=== PATIENT | female | born 1960 | race Caucasian/White ===

== ENCOUNTER 2019-01-27 07:41 | Day surgery (SDC) | payer OTHER, SELFPAY ==
[2019-01-27] VITALS (9 sets, daily range): BP systolic 116–144; BP diastolic 70–95; PULSE 66–105; RESP 11–16; TEMP 36.4–37; O2SAT 96–99
[2019-01-27] MEDS: ACETAMINOPHEN 325 MG TABLET 975 MG PO ×3 (08:22→20:38)
[2019-01-27] MEDS: CELECOXIB 200 MG CAPSULE PO (08:23)
[2019-01-27] MEDS: PREGABALIN 75 MG CAPSULE PO (08:23)
[2019-01-27] MEDS: LACTATED RINGERS 1,000 ML 42 ML IV ×2 (08:30→10:56)
--- NOTE | 2019-01-27 09:18 | PM.PREOP ---
Pre-operative Note Interval Note History & Physical reviewed/Exam performed by Physician: Yes Changes to H&P: No
--- NOTE | 2019-01-27 09:19 | PM.OP.1 ---
Operative Date/Time/Diagnoses Date of procedure: 01/27/19 Time of procedure: 11:36 Pre-op diagnosis: Bilateral medial compartment osteoarthritis Post-op diagnosis: same Procedure & Clinicians Procedure: Bilateral medial compartment arthroplasty Same procedure as scheduled: Yes Indications: The patient presents today for bilateral medial compartment knee arthroplasty after failure of conservative treatment. The nature of the procedure including the risks and benefits, alternatives, postoperative course and expected outcome were discussed and all questions answered. Consent was obtained. Operative site confirmed and marked. Surgeon: Wander Villasenor Director Of Procurement: Chavez Angela Anesthesia Type: General, Spinal and Local Operative Notes Findings: Severe medial compartment osteoarthritis bilateral knees. Closure Type: primary Specimen(s): none sent Prosthetic devices, grafts, tissues, transplants, or devices: Velásquez [employer] Nephew ZUK BILATERAL D femoral component, 2 tibial component, 9 mm polyethylene tray. Applied: implant(s) Estimated Blood Loss (mL): 10 Blood products transfused: none Tourniquet time (min): 32 Procedure in detail: The patient was taken to the operative suite and placed under general anesthesia. The patient received prophylactic antibiotics 1 g of IV tranexamic acid prior to surgery. The lateral aspect of the both knees was prepped and the knee injected with 20 mL of 1% lidocaine with epinephrine. The lege were prepped and draped in usual sterile fashion. The left leg was exsanguinated with an Esmarch dressing and the tourniquet raised to 250 torr. A 10 cm medial parapatellar incision and arthrotomy was then made. The anterior aspect of the fat pad and medial meniscus was resected. A small amount of anterior tibial boss was resected with a oscillating saw. The knee was then extended and the alignment guide placed. The distal femoral and proximal tibial cutting guides were then pinned into place. The distal femoral cut was made in extension. The proximal tibial cut was made in flexion. All remaining meniscus was excised. Gaps were checked with blocks. Soft tissues were then injected with a combination of 20 mL of quarter percent Marcaine with epinephrine, 10 mL of Exparel. The femur was sized and the appropriate cutting guide placed. The peg holes were drilled and chamfer cuts made. Next the tibia was sized and drilled. Trial components were then placed. The knee had good zoroastrianism of soft tissue tension without over correction. Range of motion was full. The trial components were removed. The knee was cleansed with Pulsavac irrigation and dried. The components were then cemented with high viscosity vacuum mixed bone cement. The knee was held in extension until the cement had adequately cured. The knee was then irrigated and inspected for any further debris. The extensor mechanism was closed at 90? of flexion with a few interrupted #1 Vicryl sutures and a running O V-LOC suture. The knee was then filled with 50 mL of solution containing 1 g of tranexamic acid and 10 mL of 0.5% Marcaine. The subcutaneous tissue was closed with 2-0 Vicryl. The skin was closed with a running 3 0 V-LOC suture and surgical adhesive. The identical procedure was then carried out on the right side. Aquacel dressings were applied. The lege were then wrapped with an Nader which will be kept on for the first 24 hours. The patient tolerated the procedure well and was returned to recovery room in good condition. Complications: none Post-operative Condition: stable Disposition: PACU Plan for aftercare: Patient will be either discharged home tonight or tomorrow depending on her pain control and progress with physical therapy. Weightbearing as tolerated. Standard medial compartment arthroplasty protocol.
[2019-01-27] MEDS: CEFAZOLIN 2 GM/100 ML FROZ.PIGGY IV ×2 (10:00→17:26)
[2019-01-27] MEDS: TRANEXAMIC ACID 1,000 MG VIAL 1000 MG INJ (10:20)
[2019-01-27] MEDS: LIDOCAINE 1% W/EPI 20 ML INJ (10:25)
--- NOTE | 2019-01-27 10:41 | SUR.OPER ---
Supine on padded OR bed. Pillow under head, arms secured on padded armboards <90 degree abduction. Safety belt across torso. Operative leg secured in DeMayo/Freeman positioner. Foam padded brace at thigh of operative leg.
[2019-01-27] MEDS: BUPIVACAINE 0.25% W/ EPI 30 ML VIAL 60 ML INJ (10:51)
[2019-01-27] MEDS: BUPIVACAINE 0.5% W/ EPI (PF) 20 ML, BUPIVACAINE LIPOSOME 266 MG, SODIUM CHLORIDE 0.9% 2... INJ (10:52)
[2019-01-27] MEDS: BUPIVACAINE 0.5% W/ EPI (PF) 10 ML, TRANEXAMIC ACID 1,000 MG, SODIUM CHLORIDE 0.9% 20 ML INJ (10:53)
--- NOTE | 2019-01-27 12:30 | SUR.PHASEI ---
Report to JAZMIN Brandt
--- NOTE | 2019-01-27 12:49 | SUR.PHASEI ---
Pt transferred to room 218. Continued to deny pain and was able to flex both feet without difficulty. Karly RN at [facility] and assumed care with pt in stable condition
[2019-01-27] MEDS: LACTATED RINGERS 1,000 ML 125 ML IV ×2 (13:19→22:10)
--- NOTE | 2019-01-27 14:02 | PC.NURSE ---
Pt was brought to the AC floor at approx. 1240. Pt has been A & O x 3. She denies pain. Bilateral knees are wrapped in SHANIKA wrap which is CDI. CMS+ PPP+. She has been oriented to the room.
[2019-01-27] MEDS: ONDANSETRON 4 MG/2 ML INJ IV (16:26)
[2019-01-27] MEDS: OXYCODONE IR 5 MG TABLET 10 MG PO (19:29)
[2019-01-27] MEDS: ASPIRIN EC 81 MG TABLET PO (20:38)
[2019-01-28 00:20] VITALS: BP 118/59; PULSE 87; RESP 16; TEMP 36.4; O2SAT 97
[2019-01-28] MEDS: OXYCODONE IR 5 MG TABLET 10 MG PO ×4 (00:23→15:32)
[2019-01-28] MEDS: IBUPROFEN 400 MG TABLET PO ×4 (00:23→13:54)
[2019-01-28] MEDS: CEFAZOLIN 2 GM/100 ML FROZ.PIGGY IV (01:36)
[2019-01-28] MEDS: HYDROMORPHONE 2 MG TABLET PO (02:23)
[2019-01-28 05:16] VITALS: BP 127/72; PULSE 78; RESP 16; TEMP 36.5; O2SAT 97
[2019-01-28 05:50] LABS: Hematocrit 36.2 % (36-46); Hemoglobin 12.5 g/dL (12.0-16.0)
[2019-01-28] MEDS: HYDROMORPHONE 0.5 MG INJ IV (06:04)
[2019-01-28] MEDS: LACTATED RINGERS 1,000 ML 125 ML IV (06:58)
[2019-01-28 08:00] VITALS: BP 155/86; PULSE 94; RESP 16; TEMP 36.9; O2SAT 96
[2019-01-28] MEDS: ACETAMINOPHEN 325 MG TABLET 975 MG PO ×2 (08:27→13:55)
[2019-01-28] MEDS: ASPIRIN EC 81 MG TABLET PO (08:28)
--- NOTE | 2019-01-28 09:21 | CM.IDA ---
Addendum entered by AILEEN Faulkner 01/29/19 08:36: Home 01.28.19 as expected, no barriers, cleared by therapy team. 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 Yes Advance Directives on File No History Provided By Patient,Medical Record Prior Living Arrangements Apartment/Condo Household Members none Type of transporation used prior to Drives own vehicle admit Independent with ADL's Yes Is patient alert and oriented? Yes Barriers to Discharge No Comment Pt is POD#1 from knee surgery w/Dr Villasenor. PT pending today. DC needs will be determined by progress w/ therapy team and further assessment. Pt plans to return home once medically cleared w /assist by family and friends. Discharge Plan Foster Care Transportation Arrangement Family/friends Referrals Initiated None needed Additional Comment Pending progress Review Status In Process
--- NOTE | 2019-01-28 10:04 | PT.IIE ---
Current Diagnoses Bilateral primary osteoarthritis of knee (01/27/19) Surgery Performed Operation Date: 01/27/19 09:45 Actual Procedures p Unicompartment Knee Arthroplasty(Bilateral) - Wander Villasenor MD Surgical History (Last Updated 01/14/19 @ 13:10 by Sujata Hines RN) History of bunionectomy of left great toe (Acute) History of section (Acute) Hx of arthroscopy of left knee (Acute) Hx of thumb surgery (Acute ~2013) Medical History (Last Updated 01/14/19 @ 13:10 by Sujata Hines RN) Arthritis (Acute) Elevated cholesterol (Acute) Fibromyalgia (Acute ~2010) Hepatitis A (Acute) Osteoarthritis (Acute) Physical Therapy Inpatient Evaluation/Re-Eval M1 PT/OT-IP Prior Functional Status Start: 01/28/19 08:31 Freq: NEEDED Status: Active Protocol: Document 01/28/19 09:43 AW (Rec: 01/28/19 10:04 AW [id number]) Medical Review Prior Functional Status Medical History Reviewed Yes Diet/Fluid Consistency Regular Communication No known deficits Mobility and Gait Pt used no assistive device but was limited in ambulation distance. She could manage household ambulation and parking lot distances. Activities of Daily Living and IADL's Independent Social History Household Members none Living Arrangements Apartment/Condo Number of Floors (Floors) Two Floors Number of Stairs To Enter/Railing? 2 LEWIS with no railing. 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 Her brother, Dennis , is planning to spend the first several days with her at her home. He has no physical limitations. Her friend/ neighbor Bre and her are also available and willing to help. Pt notes she is able to live on the main level of her townhouse with no need to access the second floor. M2 PT-IP Current Condition Start: 01/28/19 08:31 Freq: NEEDED Status: Active Protocol: Document 01/28/19 09:43 AW (Rec: 01/28/19 10:04 AW [id number]) Physical Therapy Current Condition Current Condition Evaluation Date 01/28/19 Treatment Diagnosis bilat uni/medial knee arthroplasty, impaired mobility Onset Date 01/27/19 Weight Bearing Status Weight Bearing Status Weight Bear as Tolerated M3 PT-IP Subjective Start: 01/28/19 08:31 Freq: NEEDED Status: Active Protocol: Document 01/28/19 09:43 AW (Rec: 01/28/19 10:04 AW [id number]) Subjective Physical Therapy Visit Type Type Initial Evaluation Visit Start Time 08:53 Visit Stop Time 09:36 Total Visit Minutes 43 Notes Pt seen with brother and friend in room for caregiver training. Number of TREATMENT SPECIALIST Visits 0 Physical Therapy Visit Comments Patient Comments Pt is eager to move Patient Goals To discharge home today with family/friend support Therapy Pain Assessment Pain When Pain Assessed During Mobility Pain Present Pain Present Pain Reported Location Left Knee Intensity 5 Scale Used Numeric (1 - 10) Pain Management Techniques Apply Cold,Re-positioning, Timing of Activity with Medications Right Knee Intensity 4 Scale Used Numeric (1 - 10) Pain Management Techniques Apply Cold,Re-positioning, Timing of Activity with Medications M4 PT-IP Mobility and Gait Start: 01/28/19 08:31 Freq: NEEDED Status: Active Protocol: Document 01/28/19 09:43 AW (Rec: 01/28/19 10:04 AW [id number]) PT-Bed Mobility Assessment Supine to Sit Supine to Sit Standby Assistance Scooting Scooting to Edge of Bed Standby Assistance PT-Transfer Assessment Sit to and From Stand Sit to and from Stand Standby Assistance,Use of Upper Extremities Equipment Transfer Assistive Device Gait Belt,Front Wheeled Walker Orthotic/Prosthetic Devices or Brace: No Transfers Transfer Destination Chair,Toilet Transfer Technique pt ambulated with fww Transfer Ability Level of Assist Standby Assistance,Contact Guard Assistance,Use of Upper Extremities Comments Mobility Comments Pt completed supine to sit transfer from flat bed SBA. Sit <> stand and transfer to chair also completed SBA. Pt required verbal cues to keep walker with her until ready to sit. Sit > stand from low toilet required use of grab bar and CGA. Pt positioned in recliner with bilateral ice packs, call light and table within reach. RN notified that pt in chair with no chair alarm. Gait Assessment Gait Gait Assistance Required: Standby Assistance,Contact Guard Assist Distance (Feet) 75 Able to Maintain Weight Bearing Status Yes During Gait Assistive Devices Assistive Device Gait Belt,Front Wheeled Walker Orthotic/Prosthetic Devices or Brace: No Gait Deviations General Gait Pattern Antalgic,Decreased Stride Length,Decreased Feet Clearance,Flexed Trunk,Step-to Gait Factors Limiting Gait Function Factors Limiting Gait Function Decreased Activity Tolerance, Decreased Strength,Limited Range of Motion,Pain Comments Gait Comments Pt ambulated 25 feet using FWW CGA and an additional 50 feet with FWW SBA. She walks with significant trunk flexion but was able to correct in response to cues. Pt demonstrates safe use of FWW without need for cues. Stair Climbing Assessment Comments Stair Climbing Comments Not assessed. Will trial at pm session PT-Balance Assessment Sitting Balance and Reactions Static Sitting Balance Ability Normal Dynamic Sitting Balance Ability Normal Standing Balance and Reactions Static Standing Balance Ability Good Dynamic Standing Balance Ability Good Device Used FWW Comments Other Balance Tests/Deviations/Treatment Pt able to stand at sink for : hand hygiene without UE support and no trunk contact with sink. M5 PT-IP Objective Assessments Start: 01/28/19 08:31 Freq: NEEDED Status: Active Protocol: Document 01/28/19 09:43 AW (Rec: 01/28/19 10:04 AW [id number]) Orientation Orientation/Cognition Level of Alertness Alert Orientation Name,Date,Place,Situation Language Function Ability No Deficits Noted Safety Awareness Understands Safety Issues Memory Description No Deficits Noted Gross Range of Motion Upper Extremity ROM Assessment Within Functional Limits Lower Extremity ROM Assessment Bilaterally Impaired Strength Upper Extremity Strength Assessment Within Functional Limits Lower Extremity Strength Assessment Bilaterally Impaired Comments Strength Comments Ankle DF/PF 5/5 bilaterally Coordination Assessment Gross Coordination Gross Coordination WNL Sensation Assessment Sensation Gross Sensation WNL M6 PT-IP Treatment Start: 01/28/19 08:31 Freq: NEEDED Status: Active Protocol: Document 01/28/19 09:43 AW (Rec: 01/28/19 10:04 AW [id number]) Physical Therapy Treatment Exercises Exercises Ankle Pumps,Quad Sets,Heel Slides,Passive Knee Extension Hang Education Education Provided Precautions,Weight Bearing Status,Post-Op Packet,Safety M7 PT-IP Assessment and Plan Start: 01/28/19 08:31 Freq: NEEDED Status: Active Protocol: Document 01/28/19 09:43 AW (Rec: 01/28/19 10:04 AW [id number]) PT Summary Assessment and Plan Potential Rehabilitation Potential Excellent Status of Condition at Evaluation Evolving Summary Impairments Pain,ROM,Strength,Bed Mobility ,Transfers,Gait,Activity Tolerance Assessment Summary Pt is a highly motivated 58 yo woman seen for PT evaluation on POD1 following bilateral medial compartment knee arthroplasty. PLOF: Pt was independent without need for assistive device but was limited in ambulation distance to less than one block. CLOF: Pt required SBA to CGA for all mobility and occasional verbal cues for safety with FWW during transfers. Pt reports she does not need to walk greater than 75 feet at any time in her home or to access her home. Pt will have 2 people assisting with stairs upon entry to home. Once she clears stairs at pm session, PT recommends discharge to home with assist and outpatient PT. Goals Bed Mobility Goal Independent Transfer Goal Independent,Front Wheeled Walker Gait Goal Standby Assistance,Front Wheel Walker Gait Distance 150 Other Goals up/down 2 steps with bilateral PIPE PRODUCTION WORKER OR with unilateral PIPE PRODUCTION WORKER and hurrycane opposite hand Days to Meet Goals 1 Frequency of Treatment Frequency Of Treatment Twice a Day Treatment Plan Physical Therapy Treatment Plan Bed Mobility Training,Transfer Training,Gait Training, Therapeutic Exercise,Balance Retraining,Post Op Education, Discharge Planning,Hot or Cold Pack,Neuromuscular Re-ed, Coordination Retraining,Manual Therapy Recommendations To Nursing Amount of Assist Needed Standby Assistance Discharge Recommendations PT Discharge Recommendations Home with Assistance, Outpatient PT
--- NOTE | 2019-01-28 10:39 | P.DS_ITS ---
History of Present Illness History of Present Illness Date Patient Seen: 01/28/19 Time Patient Seen: 10:40 Chief complaint: [id number] Narrative: The patient presents today for bilateral medial compartment knee arthroplasty after failure of conservative treatment. The nature of the procedure including the risks and benefits, alternatives, postoperative course and expected outcome were discussed and all questions answered. Consent was obtained. Operative site confirmed and marked. POD 1 s/p bilaterally medial compartmental knee arthroplasty w Dr. Villasenor. Patient complaining of significant pain, given oxycodone 10mg which managed pain well. Patient ambulating with PT. Patient voiding without difficulty or assistance. No other complaints Pt denies fever, chills, nausea, vomiting, chest pain, shortness of breath, calf pain. Discharge Providers Provider Discharge Date: 01/28/19 Consults: 01/27/19 12:49 Consult to Discharge Planning Routine Comment: Consult to Physical Therapy Evaluate & Treat Comment: Physician Instructions: postop TKA protocol Consult to Respiratory Therapy Evaluate & Treat Comment: Physician Instructions: Evaluate and treat Discharge provider: Rakesh Conway PA-C Summary Hospital Course Discharge Diagnosis: s/p bilateral medial compartmental knee arthroplasty arthritis fibromyalgia hepatitis a osteoarthritis Hospital Course: Patient admitted to hospital s/p bilateral medial compartmental knee arthroplasty with Dr. Villasenor. POD 1 patient was ready for discharge h ome. Hospital course was unremarkable. Patient was ambulating with PT prior to discharge. Patient was voiding without difficulty or assistance prior to discharge. Pain was well managed. Given prescription for oxycodone 10mg. Outpatient PT scheduled. ASA 81mg BID for VTE prophylaxis. Status at Discharge Cognitive/behavioral status at discharge: oriented Functional status at discharge: uses cane/walker Overall status at discharge: patient is progressing back to baseline Time Spent with Patient Time spent: Less than 30 minutes Exam Vital Signs (past 8 hours): - 01/28/19 05:16 01/28/19 08:00 Temperature 97.7 F 98.5 F Pulse Rate 78 94 H Respiratory Rate 16 16 Blood Pressure 127/72 155/86 H Pulse Oximetry 97 96 Oxygen Flow Rate 0 Narrative Exam Narrative: 58 year old female is sitting comfortably in chair, in no apparent distress. A&Ox3. Dressings on R/L knee CDI. Able to actively dorsiflex/plantar flex bl. Sensory function grossly intact to light touch in LE bl. Dorsalis pedis 2+ bl. Calves warm, soft, compressible, nttp. Objective Labs Result Diagrams: 01/28/19 05:40 Labs: Laboratory Results - last 24 hr 01/28/19 05:40 Hgb 12.5 Hct 36.2 Discharge Plan Discharge Plan Patient Disposition: Home Discharge comment: discharge pending PT evaluation Discharge Med Rec/Prescriptions Prescriptions: New ibuprofen 200 mg tablet 200 mg PO Q4H PRN (Reason: inflammation) Qty: 60 RF: 0 acetaminophen [Tylenol Extra Strength] 500 mg tablet 500 mg PO Q4H PRN (Reason: pain (scale score 1-3)) Qty: 60 RF: 0 oxycodone 10 mg tablet 10 mg PO Q4-6H PRN (Reason: pain (scale score 7-10)) Qty: 40 RF: 0 aspirin 81 mg tablet,delayed release (DR/EC) 81 mg PO BID Qty: 60 RF: 0 Discontinued naproxen sodium [Aleve] 220 mg Capsule 220 mg PO DAILY PRN (Reason: Pain) RF: 0 Follow up/Referrals: Wander Villasenor MD [Physician] - Discharge Orders: Discharge (Order); Ordered 01/28/19 Ordered By: Pascual Conway Provider Discharge Instructions Diet: Regular Activity: weight bearing as tolerated. bilateral unicompartmental knee precautions. Cold/Heat Therapy: continue cold/heat therapy as needed Skin/Wound/Dressing Care Report to your healthcare provider any signs of infection, such as:: chills, fever, increased pain, unusual drainage and unusual redness Dressing: aquacel dressing can be used in shower. do not soak (e.g. bath). if saturated please contact the office for a dressing change. Visit Report/Discharge Packet Instructions: DI for Knee Replacement, Oxycodone Stand Alone Forms: Surgery Discharge Discharge Data Attending Provider: Wander Villasenor Discharges patient from system. Discharge Date/Time: 01/28/19 16:24 Quality VTE Deep Vein Thrombosis/Pulmonary Embolism Present on Admission: No
[2019-01-28 12:00] VITALS: BP 146/82; PULSE 79; RESP 16; TEMP 36.5; O2SAT 98
--- NOTE | 2019-01-28 14:11 | PT.IPTN ---
Current Diagnoses Bilateral primary osteoarthritis of knee (01/27/19) Surgery Performed Operation Date: 01/27/19 09:45 Actual Procedures p Unicompartment Knee Arthroplasty(Bilateral) - Wander Villasenor MD Physical Therapy Treatment Note M2 PT-IP Current Condition Start: 01/28/19 08:31 Freq: NEEDED Status: Active Protocol: Document 01/28/19 09:43 AW (Rec: 01/28/19 10:04 AW [id number]) Physical Therapy Current Condition Current Condition Evaluation Date 01/28/19 Treatment Diagnosis bilat uni/medial knee arthroplasty, impaired mobility Onset Date 01/27/19 Weight Bearing Status Weight Bearing Status Weight Bear as Tolerated M3 PT-IP Subjective Start: 01/28/19 08:31 Freq: NEEDED Status: Active Protocol: Document 01/28/19 13:57 AW (Rec: 01/28/19 14:11 AW [id number]) Subjective Physical Therapy Visit Type Type Treatment Note Visit Start Time 13:28 Visit Stop Time 13:54 Total Visit Minutes 26 Physical Therapy Visit Comments Patient Comments Pt up in chair since morning, ready to get back to bed for a nap. Patient Goals To discharge home today with family/friend support Therapy Pain Assessment Pain When Pain Assessed During Mobility Pain Present Pain Present Pain Reported Location Left Knee Intensity 4 Scale Used Numeric (1 - 10) Pain Management Techniques Apply Cold,Re-positioning, Timing of Activity with Medications Right Knee Intensity 5 Scale Used Numeric (1 - 10) Pain Management Techniques Apply Cold,Re-positioning, Timing of Activity with Medications M4 PT-IP Mobility and Gait Start: 01/28/19 08:31 Freq: NEEDED Status: Active Protocol: Document 01/28/19 13:57 AW (Rec: 01/28/19 14:11 AW [id number]) PT-Bed Mobility Assessment Sit to Supine Sit to Supine Independent PT-Transfer Assessment Sit to and From Stand Sit to and from Stand Standby Assistance,Use of Upper Extremities Equipment Transfer Assistive Device Gait Belt,Front Wheeled Walker Orthotic/Prosthetic Devices or Brace: No Transfers Transfer Destination Bed,Wheelchair Transfer Technique pt ambulated with fww Transfer Ability Level of Assist Standby Assistance,Use of Upper Extremities Comments Mobility Comments Pt required only SBA for all transfers, demonstrating safe use of FWW. Pt required no cues for walker use, improved from morning session. Gait Assessment Gait Gait Assistance Required: Standby Assistance Distance (Feet) 150 Able to Maintain Weight Bearing Status Yes During Gait Assistive Devices Assistive Device Gait Belt,Front Wheeled Walker Orthotic/Prosthetic Devices or Brace: No Gait Deviations General Gait Pattern Antalgic,Decreased Stride Length,Decreased Feet Clearance,Flexed Trunk Factors Limiting Gait Function Factors Limiting Gait Function Decreased Activity Tolerance, Decreased Strength,Limited Range of Motion,Pain Comments Gait Comments Pt ambulated 150 feet using FWW with wheelchair follow SBA . Posture improved compared with AM session. 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 She reported the LLE felt stronger , so led with LLE ascending and RLE descending. Pt able to sequence stair management safely without verbal cues PT-Balance Assessment Comments Other Balance Tests/Deviations/Treatment Pt able to stand at sink for : hygiene without UE suppory and no trunk contact with lean. M5 PT-IP Objective Assessments Start: 01/28/19 08:31 Freq: NEEDED Status: Active Protocol: Document 01/28/19 09:43 AW (Rec: 01/28/19 10:04 AW [id number]) Orientation Orientation/Cognition Level of Alertness Alert Orientation Name,Date,Place,Situation Language Function Ability No Deficits Noted Safety Awareness Understands Safety Issues Memory Description No Deficits Noted Gross Range of Motion Upper Extremity ROM Assessment Within Functional Limits Lower Extremity ROM Assessment Bilaterally Impaired Strength Upper Extremity Strength Assessment Within Functional Limits Lower Extremity Strength Assessment Bilaterally Impaired Comments Strength Comments Ankle DF/PF 5/5 bilaterally Coordination Assessment Gross Coordination Gross Coordination WNL Sensation Assessment Sensation Gross Sensation WNL M6 PT-IP Treatment Start: 01/28/19 08:31 Freq: NEEDED Status: Active Protocol: Document 01/28/19 13:57 AW (Rec: 01/28/19 14:11 AW [id number]) Physical Therapy Treatment Education Education Provided Precautions,Weight Bearing Status,Post-Op Packet,Safety M7 PT-IP Assessment and Plan Start: 01/28/19 08:31 Freq: NEEDED Status: Active Protocol: Document 01/28/19 13:57 AW (Rec: 01/28/19 14:11 AW [id number]) PT Summary Assessment and Plan Potential Rehabilitation Potential Excellent Status of Condition at Evaluation Evolving Summary Impairments Pain,ROM,Strength,Bed Mobility ,Transfers,Gait,Activity Tolerance Progress Towards Goals Progressing Toward Goals,Goals Met Assessment Summary Pt required decreased level of assist and managed stairs with SBA. Safe for discharge to home environment with family/friend support. Goals Bed Mobility Goal Independent Transfer Goal Independent,Front Wheeled Walker Gait Goal Standby Assistance,Front Wheel Walker Gait Distance 150 Other Goals up/down 2 steps with bilateral [employer]IEF [employer] CH[employer] OFFICER OR with unilateral CHIEF SUP[employer]Y CHAIN OFFICER and hurrycane opposite hand Days to Meet Goals 1 Frequency of Treatment Frequency Of Treatment Twice a Day Treatment Plan Physical Therapy Treatment Plan Bed Mobility Training,Transfer Training,Gait Training, Therapeutic Exercise,Balance Retraining,Post Op Education, Discharge Planning,Hot or Cold Pack,Neuromuscular Re-ed, Coordination Retraining,Manual Therapy Recommendations To Nursing Amount of Assist Needed Standby Assistance Discharge Recommendations PT Discharge Recommendations Home with Assistance, Outpatient PT
--- NOTE | 2019-01-28 16:20 | PC.NURSE ---
Rebekah shift note: Patient discharged home via private vehicle, cleared by PT. Verbalized understanding of discharge instructions, discussed importance of F/U in 2 weeks. Educated regarding precautions, new medications/side effects, and activity.
== END 2019-01-28 16:24 | disposition home or self-care (01) ==
LOC: OR 07:47 → AC 12:32
PROVIDERS: Visit Provider Orthopaedic Surgery
PROC: (CPT 27446; principal; 2019-01-27 09:45)
DX: M17.0 Bilateral primary osteoarthritis of knee (principal)
CPT/HCPCS: 27446; 36415; 85014; 85018; 97110; 97116; 97161; 97530; C1776; C9290; J0690; J1100; J1170; J2250; J2405; J2704; J3010